=== PATIENT | female | born 1935 | race Caucasian/White ===

== ENCOUNTER 2016-10-10 12:45 | Inpatient (IN) | payer OTHER ==
[2016-10-10] VITALS (13 sets, daily range): BP systolic 0–143; BP diastolic 0–99
[~2016-10-10] VITALS: Ht 152.4 cm; Wt 69.6 kg
[2016-10-10 13:03] LABS: BASOPHIL COUNT 0.1 K/uL (0-0.1); EOSINOPHIL COUNT 0.4 K/uL (0-0.3); HEMATOCRIT 36.2 % (36.0-46.0); IMMATURE GRANULOCYTE (%) 0.3 % (0.0-0.7); INSTRUMENT ABS NEUTROPHIL CT 2.9 K/uL; LYMPHOCYTE COUNT 2.2 K/uL (1.0-2.8); MCH 31.2 PG (29.0-34.0); MCHC 32.9 G/DL (30.0-36.0); MCV 94.8 FL (83-99); MEAN PLAT.VOLUME 9.1 uM^3 (9.5-12.4); MONOCYTE (%) 10.7 % (3-12); MONOCYTE COUNT 0.7 K/uL (0-0.8); NEUTROPHIL (%) 47.1 % (45-76); NEUTROPHIL COUNT 2.9 K/uL (1.8-6.4); PLATELET COUNT 364 K/uL (156-360); RBC DIS.WIDTH-CV 13.7 % (11.8-14.6); RBC DIS.WIDTH-SD 48.1 % (39-53); RED BLOOD COUNT 3.82 M/uL (3.80-5.20); WHITE BLOOD COUNT 6.2 K/uL (4.1-10.2)
[2016-10-10 13:14] LABS: AMYLASE 72 IU/L (1-118); CHLORIDE 105 mEq/L (99-109); POTASSIUM 3.7 mEq/L (3.7-5.4); SODIUM 138 mEq/L (136-147)
[2016-10-10 13:16] LABS: GLUCOSE 144 mg/dL (70-99)
[2016-10-10 13:17] LABS: ANION GAP 11 MEQ/L (2-14); INTER. NORMALIZED RATIO 1.1; PTT 25.1 (25-32)
[2016-10-10 13:19] LABS: SERUM ETHYL ALCOHOL < 10 mg/dL
[2016-10-10 13:20] LABS: GFR ESTIMATE (CALCULATED) > 59 mL/min/
[2016-10-10 13:21] LABS: UREA NITROGEN (BUN) 10 mg/dL (9-23)
[2016-10-10 13:23] LABS: LIPASE 95 U/L (1.0-51.0)
[2016-10-10 13:27] LABS: TROP-I INTERPRETATION NEGATIVE; TROPONIN-I 0.02 ng/mL (0.0-0.30)
[2016-10-10] MEDS ORDERED: PHENYTOIN SODI100 M1 PO (15:32)
[2016-10-10 16:55] LABS: METH RESISTANT S AUREUS PCR NEGATIVE (NEGATIVE)
[2016-10-10 17:03] LABS: PROBE CHECK PASS; SPECIMEN PROCESSING CONTROL PASS
[2016-10-10 20:27] LABS: TROP-I INTERPRETATION POSITIVE; TROPONIN-I 16.45 ng/mL (0.0-0.30)
[2016-10-10 21:03] LABS: CREATINE KINASE 1331 IU/L (1-294); TOTAL CK 1331 IU/L (1-294)
[2016-10-10 21:49] LABS: CK-MB 208.6 ng/mL (0.0-4.9)
[2016-10-10] MEDS ORDERED: LOSARTAN POTAS100 MG PO (22:16)
[2016-10-10] MEDS ORDERED: ARTHROTEC 751 TABLET PO (22:18)
[2016-10-10] MEDS ORDERED: ERGOCALCIF50000 UNIT PO (22:19)
[2016-10-11] VITALS (22 sets, daily range): BP systolic 113–158; BP diastolic 51–85
[2016-10-11 08:23] LABS: EOSINOPHIL (%) 0.2 % (0-5); HEMATOCRIT 34.9 % (36.0-46.0); IMMATURE GRANULOCYTE (%) 0.6 % (0.0-0.7); IMMATURE GRANULOCYTE COUNT 0.1 K/uL; INSTRUMENT ABS NEUTROPHIL CT 8.8 K/uL; LYMPHOCYTE COUNT 1.2 K/uL (1.0-2.8); MCH 32.4 PG (29.0-34.0); MCHC 34.7 G/DL (30.0-36.0); MCV 93.3 FL (83-99); MEAN PLAT.VOLUME 9.5 uM^3 (9.5-12.4); MONOCYTE (%) 8.9 % (3-12); NEUTROPHIL (%) 79.6 % (45-76); NEUTROPHIL COUNT 8.8 K/uL (1.8-6.4); PLATELET COUNT 365 K/uL (156-360); RBC DIS.WIDTH-CV 13.8 % (11.8-14.6); RBC DIS.WIDTH-SD 47.6 % (39-53); RED BLOOD COUNT 3.74 M/uL (3.80-5.20); WHITE BLOOD COUNT 11.1 K/uL (4.1-10.2)
[2016-10-11 08:36] LABS: Estimated Average Glucose 128 mg/dL (70-123); HEMOGLOBIN A1c (GLYCOHEMOGLOB) 6.1 % HGB (Below 5.7)
[2016-10-11 08:48] LABS: ANION GAP 10 MEQ/L (2-14); CHLORIDE 100 MEQ/L (99-109); GFR ESTIMATE (CALCULATED) > 59 mL/min/; GLUCOSE 139 mg/dL (70-99); HDL CHOLESTEROL 63 MG/DL (Desirable>=50); LDL CHOLESTEROL 102 mg/dL (Desirable<100); NON-HDL CHOLESTEROL 126 mg/dL (Desirable<160); POTASSIUM 3.7 MEQ/L (3.7-5.4); SAMPLE HEMOLYSIS CHECK 0; SAMPLE ICTERIC CHECK 0; SAMPLE LIPEMIA CHECK 0; SODIUM 133 MEQ/L (136-147); TOTAL CHOLESTEROL 189 mg/dL (Desirable<200); TRIGLYCERIDES 120 MG/DL (Normal: <150); UREA NITROGEN (BUN) 7 mg/dL (9-23)
[2016-10-11 09:33] LABS: TROP-I INTERPRETATION POSITIVE; TROPONIN-I 48.59 ng/mL (0.0-0.30)
[2016-10-11 10:43] LABS: TOTAL CK 1709 IU/L (1-294)
[2016-10-11 10:44] LABS: CREATINE KINASE 1709 IU/L (1-294)
[2016-10-11 10:45] LABS: CK-MB 204.3 ng/mL (0.0-4.9)
[2016-10-11 21:36] LABS: CK-MB 118.9 ng/mL (0.0-4.9); TROP-I INTERPRETATION POSITIVE; TROPONIN-I 46.21 ng/mL (0.0-0.30)
[2016-10-11 21:59] LABS: TOTAL CK 1169 IU/L (1-294)
[2016-10-11 22:06] LABS: CREATINE KINASE 1169 IU/L (1-294)
[2016-10-12] VITALS (16 sets, daily range): BP systolic 99–127; BP diastolic 51–69
[2016-10-12 05:27] LABS: MCH 31.4 PG (29.0-34.0); MCHC 34.3 G/DL (30.0-36.0); MCV 91.6 FL (83-99); MEAN PLAT.VOLUME 9.6 uM^3 (9.5-12.4); PLATELET COUNT 331 K/uL (156-360); RBC DIS.WIDTH-CV 13.3 % (11.8-14.6); RBC DIS.WIDTH-SD 45.7 % (39-53); RED BLOOD COUNT 3.82 M/uL (3.80-5.20); WHITE BLOOD COUNT 13.6 K/uL (4.1-10.2)
[2016-10-12 06:35] LABS: ANION GAP 9 MEQ/L (2-14); CHLORIDE 94 MEQ/L (99-109); GFR ESTIMATE (CALCULATED) > 59 mL/min/; GLUCOSE 140 mg/dL (70-99); POTASSIUM 3.6 MEQ/L (3.7-5.4); SAMPLE HEMOLYSIS CHECK 0; SAMPLE ICTERIC CHECK 0; SAMPLE LIPEMIA CHECK 0; UREA NITROGEN (BUN) 6 mg/dL (9-23)
[2016-10-12 06:47] LABS: SODIUM 126 MEQ/L (136-147)
[2016-10-13] VITALS (14 sets, daily range): BP systolic 0–111; BP diastolic 0–68
[2016-10-13 05:58] LABS: ANION GAP 8 MEQ/L (2-14); CHLORIDE 92 MEQ/L (99-109); GFR ESTIMATE (CALCULATED) > 59 mL/min/; GLUCOSE 135 mg/dL (70-99); POTASSIUM 3.8 MEQ/L (3.7-5.4); SAMPLE HEMOLYSIS CHECK 0; SAMPLE ICTERIC CHECK 0; SAMPLE LIPEMIA CHECK 0; SODIUM 124 MEQ/L (136-147); UREA NITROGEN (BUN) 7 mg/dL (9-23)
[2016-10-14] VITALS (9 sets, daily range): BP systolic 81–101; BP diastolic 44–63
[2016-10-14 06:13] LABS: ANION GAP 9 MEQ/L (2-14); CHLORIDE 92 MEQ/L (99-109); POTASSIUM 3.7 MEQ/L (3.7-5.4); SAMPLE HEMOLYSIS CHECK 0; SAMPLE ICTERIC CHECK 0; SAMPLE LIPEMIA CHECK 0; SODIUM 123 MEQ/L (136-147)
[2016-10-14 06:19] LABS: GFR ESTIMATE (CALCULATED) > 59 mL/min/; GLUCOSE 128 mg/dL (70-99); UREA NITROGEN (BUN) 11 mg/dL (9-23)
[2016-10-14 15:23] LABS: ANION GAP 7 MEQ/L (2-14); CHLORIDE 94 MEQ/L (99-109); GFR ESTIMATE (CALCULATED) > 59 mL/min/; GLUCOSE 114 mg/dL (70-99); POTASSIUM 3.2 MEQ/L (3.7-5.4); SAMPLE HEMOLYSIS CHECK 0; SAMPLE ICTERIC CHECK 0; SAMPLE LIPEMIA CHECK 0; SODIUM 126 MEQ/L (136-147); UREA NITROGEN (BUN) 11 mg/dL (9-23)
[2016-10-14 19:04] LABS: ANION GAP 10 MEQ/L (2-14); CHLORIDE 96 MEQ/L (99-109); POTASSIUM 3.4 MEQ/L (3.7-5.4); SAMPLE HEMOLYSIS CHECK 0; SAMPLE ICTERIC CHECK 0; SAMPLE LIPEMIA CHECK 0; SODIUM 127 MEQ/L (136-147)
[2016-10-14 19:09] LABS: GFR ESTIMATE (CALCULATED) > 59 mL/min/; GLUCOSE 140 mg/dL (70-99); UREA NITROGEN (BUN) 11 mg/dL (9-23)
[2016-10-14 23:43] LABS: CHLORIDE 100 mEq/L (99-109); POTASSIUM 3.8 mEq/L (3.7-5.4); SODIUM 128 mEq/L (136-147)
[2016-10-14 23:44] LABS: GLUCOSE 115 mg/dL (70-99)
[2016-10-14 23:46] LABS: ANION GAP 8 MEQ/L (2-14)
[2016-10-14 23:48] LABS: GFR ESTIMATE (CALCULATED) > 59 mL/min/
[2016-10-14 23:49] LABS: UREA NITROGEN (BUN) 10 mg/dL (9-23)
[2016-10-15 01:00] VITALS: BP 96/54
[2016-10-15 02:36] LABS: CHLORIDE 102 mEq/L (99-109); POTASSIUM 4.2 mEq/L (3.7-5.4); SODIUM 131 mEq/L (136-147)
[2016-10-15 02:37] LABS: CHLORIDE 102 mEq/L (99-109); SODIUM 131 mEq/L (136-147)
[2016-10-15 02:38] LABS: GLUCOSE 116 mg/dL (70-99)
[2016-10-15 02:39] LABS: ANION GAP 8 MEQ/L (2-14); GLUCOSE 120 mg/dL (70-99)
[2016-10-15 02:40] LABS: ANION GAP 7 MEQ/L (2-14)
[2016-10-15 02:41] LABS: GFR ESTIMATE (CALCULATED) > 59 mL/min/
[2016-10-15 02:42] LABS: GFR ESTIMATE (CALCULATED) > 59 mL/min/; UREA NITROGEN (BUN) 10 mg/dL (9-23)
[2016-10-15 02:43] LABS: UREA NITROGEN (BUN) 9 mg/dL (9-23)
[2016-10-15 03:00] VITALS: BP 89/54
[2016-10-15 05:00] VITALS: BP 89/54
[2016-10-15 08:00] VITALS: BP 121/57
[2016-10-15 08:43] LABS: ADD MIUA? YES; BILIRUBIN NEGATIVE; BLOOD NEGATIVE; COLOR YELLOW ((YELLOW)); GLUCOSE (STRIP) NEGATIVE; KETONES NEGATIVE; LEUKOCYTES MODERATE; NITRITE NEGATIVE; PROTEIN (STRIP) NEGATIVE; SPECIFIC GRAVITY 1.005 (1.000-1.030); UROBILINOGEN 0.2 MG/DL (0.2-1.0)
[2016-10-15 08:51] LABS: BACTERIA NONE SEEN /HPF; EPITHELIAL CELLS RARE /HPF; MUCUS NONE SEEN /LPF; RED BLOOD CELLS 0-5 /HPF (0-5)
[2016-10-15 09:18] LABS: ANION GAP 7 MEQ/L (2-14); CHLORIDE 103 MEQ/L (99-109); GFR ESTIMATE (CALCULATED) > 59 mL/min/; GLUCOSE 117 mg/dL (70-99); POTASSIUM 4.3 MEQ/L (3.7-5.4); SAMPLE HEMOLYSIS CHECK 0; SAMPLE ICTERIC CHECK 0; SAMPLE LIPEMIA CHECK 0; SODIUM 133 MEQ/L (136-147); UREA NITROGEN (BUN) 9 mg/dL (9-23)
[2016-10-15 12:00] VITALS: BP 92/56
[2016-10-15] MEDS ORDERED: CLOPIDOGREL75 MG PO (12:49)
[2016-10-15] MEDS ORDERED: ATORVASTATIN CA80 MG PO (12:49)
[2016-10-15] MEDS ORDERED: LOPRESSOR25 MG PO (12:49)
[2016-10-15] MEDS ORDERED: LOSARTAN POTASS25 MG PO (12:49)
[2016-10-15] MEDS ORDERED: ASPIR-LOW81 MG PO (12:49)
[2016-10-15] MEDS ORDERED: XARELTO20 MG PO (12:49)
[2016-10-15] MEDS ORDERED: NITROSTAT0.4 MG SL (12:49)
== END 2016-10-15 14:00 | disposition home or self-care (01) | DRG 251 ==
LOC: EME 12:45 → CATH 13:49 → 4WEST 14:27 → 2SOUTH 14:27 → 4WEST 14:59
PROVIDERS: Emergency Medicine; Internal Medicine Cardiovascular Disease; Internal Medicine Interventional Cardiology; Internal Medicine Nephrology
PROC: 4A023N7 Measurement of Cardiac Sampling and Pressure, Left Heart, Percutaneous Approach (ICD-10-PCS; principal; 2016-10-10)
PROC: 02713ZZ Dilation of Coronary Artery, Two Arteries, Percutaneous Approach (ICD-10-PCS; principal; 2016-10-10)
PROC: B2111ZZ Fluoroscopy of Multiple Coronary Arteries using Low Osmolar Contrast (ICD-10-PCS; principal; 2016-10-10)
PROC: B2151ZZ Fluoroscopy of Left Heart using Low Osmolar Contrast (ICD-10-PCS; principal; 2016-10-10)
DX: I21.29 ST elevation (STEMI) myocardial infarction involving other sites (principal); E87.1 Hypo-osmolality and hyponatremia; Q28.9 Congenital malformation of circulatory system, unspecified; E78.5 Hyperlipidemia, unspecified; G40.909 Epilepsy, unspecified, not intractable, without status epilepticus; E87.6 Hypokalemia; I10 Essential (primary) hypertension; I25.118 Atherosclerotic heart disease of native coronary artery with other forms of angina pectoris; I25.82 Chronic total occlusion of coronary artery; I25.5 Ischemic cardiomyopathy; I48.91 Unspecified atrial fibrillation; I49.3 Ventricular premature depolarization; M19.90 Unspecified osteoarthritis, unspecified site; I34.0 Nonrheumatic mitral (valve) insufficiency; Z79.01 Long term (current) use of anticoagulants; Z79.02 Long term (current) use of antithrombotics/antiplatelets; Z79.82 Long term (current) use of aspirin
CPT/HCPCS: 71010; 80048; 80048 91; 80061; 80069; 81003; 82150; 82533 91; 82550; 82550 91; 82553; 83036; 83690; 83935; 84300; 84443; 84484; 85025; 85027; 85347; 85610; 85730; 86900; 86901; 87641; 93005; 93306; 94799; 99281; 99284; C1725; C1769; C1874; C1887; G0480; J1644; J1940; J2250; J3010; J3246; J7030; J7050

== ENCOUNTER 2017-02-02 14:10 | Emergency (ER) | payer OTHER ==
[~2017-02-02] VITALS: Ht 152.4 cm; Wt 65.3 kg
[~2017-02-02 14:10] MED LIST: ARTHROTEC 751 TABLET PO; ASPIR-LOW81 MG PO; ATORVASTATIN CA80 MG PO; CLOPIDOGREL75 MG PO; ERGOCALCIF50000 UNIT PO; LOPRESSOR25 MG PO; LOSARTAN POTAS100 MG PO; LOSARTAN POTASS25 MG PO; NITROSTAT0.4 MG SL; PHENYTOIN SODI100 M1 PO; XARELTO20 MG PO
[2017-02-02 15:20] LABS: HEMATOCRIT 37.4 % (36.0-46.0); MCH 31.7 PG (29.0-34.0); MCHC 33.2 G/DL (30.0-36.0); MCV 95.7 FL (83-99); MEAN PLAT.VOLUME 9.6 uM^3 (9.5-12.4); PLATELET COUNT 305 K/uL (156-360); RBC DIS.WIDTH-CV 13.8 % (11.8-14.6); RBC DIS.WIDTH-SD 48.9 % (39-53); RED BLOOD COUNT 3.91 M/uL (3.80-5.20); WHITE BLOOD COUNT 8.6 K/uL (4.1-10.2)
[2017-02-02 15:27] LABS: INTER. NORMALIZED RATIO 1.1; PROTHROMBIN TIME 12.1 SEC (10.2-12.9)
[2017-02-02 15:29] LABS: PTT 29.6 SEC (25-37)
[2017-02-02 15:30] LABS: CHLORIDE 106 mEq/L (99-109); POTASSIUM 3.7 mEq/L (3.7-5.4); SODIUM 138 mEq/L (136-147)
[2017-02-02 15:31] LABS: GLUCOSE 108 mg/dL (70-99)
[2017-02-02 15:33] LABS: ANION GAP 9 MEQ/L (2-14)
[2017-02-02 15:35] LABS: GFR ESTIMATE (CALCULATED) > 59 mL/min/
[2017-02-02 15:36] LABS: UREA NITROGEN (BUN) 12 mg/dL (9-23)
[2017-02-02] MEDS ORDERED: PERCOCET 5/31 TABLET PO (17:24)
[2017-02-02 17:50] VITALS: BP 123/62
== END 2017-02-02 17:51 | disposition home or self-care (01) ==
LOC: EME 14:10
PROVIDERS: Physician Assistant
DX: S30.0XXA Contusion of lower back and pelvis, initial encounter (principal); W18.39XA Other fall on same level, initial encounter; I10 Essential (primary) hypertension; E78.5 Hyperlipidemia, unspecified; R56.9 Unspecified convulsions; I25.2 Old myocardial infarction; Z79.01 Long term (current) use of anticoagulants; Z88.8 Allergy status to other drugs, medicaments and biological substances
CPT/HCPCS: 70450; 72192; 80048; 85027; 85610; 85730; 99281; 99284

== ENCOUNTER → 2017-11-12 | Outpatient (CLI) | payer MEDICARE, OTHER ==
[~2017-11-12] MED LIST changes: +PERCOCET 5/31 TABLET PO
== END | disposition home or self-care (01) ==
LOC: CDC 09:49
DX: Z01.810 Encounter for preprocedural cardiovascular examination (principal); H25.12 Age-related nuclear cataract, left eye
CPT/HCPCS: 93000